=== PATIENT | female | born 1960 | race American Indian/Alaskan Native ===

== ENCOUNTER 2019-02-10 08:02 | Outpatient (CLI) | payer BC ==
--- NOTE | 2019-02-10 14:39 | Mammography Report ---
DIGITAL SCREENING MAMMOGRAM WITH CAD, 02/10/2019 INDICATION: Routine screening mammography. TECHNIQUE: Digital bilateral 2D mammography was obtained in the craniocaudal and mediolateral obliq ue projections. This examination was interpreted with the benefit of Computer-Aided Detection analysi s. COMPARISON: None available. However, she indicated that she had a previous mammogram at [facility]. FINDINGS: Breast Density: There are scattered areas of fibroglandular density. Right asymmetries on the MLO view require comparison with the prior mammogram or additional imaging. No architectural distortion or suspicious calcifications of the right breast. There is no evidence of dominant mass, suspicious calcifications or architectural distortion in the left breast. IMPRESSION:Comparison with a previous mammogram is recommended. We will attempt to obtain a prior jamel mogram for comparison. If we do not obtain a prior mammogram within 30 days, a revised report will be issued recommending a recall for additional imaging. Please be advised that the patient should not s chedule an appointment for return until adequate time (at least 2 weeks) has passed for us to obtain the prior mammogram. Follow up recommendation: Obtain prior study for comparison Category 0: Incomplete. Needs additional imaging evaluation and/or prior mammograms for comparison. A "normal" or negative report should not discourage follow up or biopsy of a clinically significant f inding. A written summary of these findings will be mailed to the patient. The patient will be entered into a mammography reporting system which will generate a reminder letter for the patient's next appointmen t at the appropriate interval. The [employer] recommends yearly mammograms starting at age 40 and continuing as l antony as a woman is in good health. Breast MRI is recommended for women with an approximate 20-25% or greater lifetime risk of breast cancer, including women with a strong family history of breast or ova caitlyn cancer or who have been treated for Hodgkin's disease. Signer Name: Tho Harris MD Signed: 02/10/2019 2:35 PM Workstation Name: [id number]
== END 2019-02-10 08:03 | disposition home or self-care (01) ==
LOC: MAMMO 08:02
PROVIDERS: ATTEND Family Medicine
DX: Z12.31 Encounter for screening mammogram for malignant neoplasm of breast (principal)
CPT/HCPCS: 77067

== ENCOUNTER 2020-02-23 08:25 | Outpatient (CLI) | payer BC ==
--- NOTE | 2020-02-23 13:13 | Mammography Report ---
DIGITAL SCREENING MAMMOGRAM WITH CAD, 02/23/2020 CLINICAL INFORMATION / INDICATION: Routine screening mammography. TECHNIQUE: Digital bilateral 2D mammography was obtained in the craniocaudal and mediolateral obliqu e projections. This examination was interpreted with the benefit of Computer-Aided Detection analysis . COMPARISON: 02/10/2019, 09/26/2014 FINDINGS: Breast Density: There are scattered areas of fibroglandular density. No dominant mass, suspicious calcifications, or architectural distortion in either breast. IMPRESSION: No mammographic evidence of malignancy. Follow up recommendation: Routine yearly BI-RADS Category 1: Negative. A "normal" or negative report should not discourage follow up or biopsy of a clinically significant f inding. A written summary of these findings will be mailed to the patient. The patient will be entered into a mammography reporting system which will generate a reminder letter for the patient's next appointmen t at the appropriate interval. The [employer] recommends yearly mammograms starting at age 40 and continuing as l antony as a woman is in good health. Breast MRI is recommended for women with an approximate 20-25% or greater lifetime risk of breast cancer, including women with a strong family history of breast or ova caitlyn cancer or who have been treated for Hodgkin's disease. Signer Name: Eze Puckett MD Signed: 02/23/2020 1:09 PM Workstation Name: [id number]
== END 2020-02-23 08:26 | disposition home or self-care (01) ==
LOC: MAMMO 08:25
PROVIDERS: ATTEND Family Medicine
DX: Z12.31 Encounter for screening mammogram for malignant neoplasm of breast (principal)
CPT/HCPCS: 77067

== ENCOUNTER 2020-07-17 13:28 | Emergency (ER) | payer BC ==
[2020-07-17 14:57] VITALS: BP 149/86
--- NOTE | 2020-07-17 15:03 | Event Note ---
ED Screening Note Date of service: 07/17/20 Time: 15:02 ED Screening Note: c/o right lower leg pain and swelling x 3 weeks, worsening hx of DM denies hx of gout or CHF +recent plane ride This initial assessment/diagnostic orders/clinical plan/treatment(s) is/are subject to change based on patients health status, clinical progression and re- assessment by fellow clinical providers in the ED. Further treatment and workup at subsequent clinical providers discretion. Patient/guardian urged not to elope from the ED as their condition may be serious if not clinically assessed and managed. Initial orders include: labs XR US
[2020-07-17 15:39] LABS: Basophils # (Auto) 0.1 K/mm3 (0.0-0.1); Basophils % (Auto) 0.8 % (0.0-1.8); Eosinophils # (Auto) 0.2 K/mm3 (0.0-0.4); Eosinophils % (Auto) 2.3 % (0.0-4.3); Lymphocytes # (Auto) 2.2 K/mm3 (1.2-5.4); Mean Corpuscular HGB Conc 34 % (30-34); Mean Corpuscular Volume 87 fl (79-97); Monocytes # (Auto) 0.4 K/mm3 (0.0-0.8); Monocytes % (Auto) 6.3 % (0.0-7.3); Platelet Count 275 K/mm3 (140-440); Red Blood Count 4.74 M/mm3 (3.65-5.03); Red Cell Distribution Width 14.2 % (13.2-15.2)
--- NOTE | 2020-07-17 15:58 | Vascular Lab Report ---
DUPLEX DOPPLER LOWER EXTREMITY VEINS, RIGHT INDICATION / CLINICAL INFORMATION: Right lower extremity pain and swelling. TECHNIQUE: Duplex doppler imaging was performed through the veins of the right lower extremity using venous comp ression and other maneuvers. COMPARISON: None available. FINDINGS: RIGHT COMMON FEMORAL VEIN: Negative. RIGHT FEMORAL VEIN: Negative. RIGHT POPLITEAL VEIN: Negative. RIGHT CALF VEINS: Negative. ADDITIONAL FINDINGS: None. IMPRESSION: 1. No sonographic evidence for DVT in the right lower extremity. Signer Name: Eze Puckett MD Signed: 07/17/2020 3:54 PM Workstation Name: [id number]
--- NOTE | 2020-07-17 16:11 | XRay Report ---
RIGHT ANKLE 3 VIEWS INDICATION / CLINICAL INFORMATION: Right ankle pain and swelling, no known injury. COMPARISON: None available. FINDINGS: BONES and JOINT(S): There is an acute nondisplaced transverse fracture through the distal third of th e fibular shaft. No dislocation. No significant arthritis. SOFT TISSUES: Moderate edema is seen along the ankle, most notably laterally. ADDITIONAL FINDINGS: None. IMPRESSION: Acute right fibular shaft fracture with moderate right ankle edema. Signer Name: Eze Puckett MD Signed: 07/17/2020 4:07 PM Workstation Name: [id number]
[2020-07-17 16:49] LABS: Alanine Aminotransferase 20 units/L (7-56); Albumin 4.5 g/dL (3.9-5); Blood Urea Nitrogen 12 mg/dL (7-17); Calcium 10.3 mg/dL (8.4-10.2); Hemolysis Index 5
[2020-07-17 16:50] LABS: BUN/Creatinine Ratio 24
--- NOTE | 2020-07-17 17:11 | Emergency Department Report ---
ED Extremity Problem HPI - General Chief complaint: Extremity Injury, Lower Stated complaint: RT ANKLE INJURY Time Seen by Provider: 07/17/20 15:00 Source: patient Mode of arrival: Ambulatory Limitations: No Limitations - History of Present Illness Initial comments: Patient is a 60-year-old female presents emergency room complaints of right ankle pain and swelling intermittently for the last 3 weeks. She states that the pain does radiate up her leg into her calf. She states she did just fly to [place] and got back today. He states that the swelling and pain has increased. She states last week she did have a fall onto her left side while in the parking lot when she accidentally slipped and fell. She states that she has been taking Tylenol with relief. She denies any shortness of breath, chest pain, numbness, weakness. Past medical history of HTN, DM, HLD, hyperthyroidism. Allergy to ibuprofen, neomycin, fish, latex. - Related Data Home Medications Medication Instructions Recorded Confirmed Last Taken Amlodipine Besylate [Norvasc] 5 mg PO DAILY 03/15/18 03/15/18 Unknown Insulin Glargine,Hum.rec.anlog 30 unit SQ BID 03/15/18 03/15/18 Unknown [Basaglar Kwikpen U-100] Levothyroxine [Synthroid] 100 mcg PO QAM 03/15/18 03/15/18 Unknown Lovastatin [Altoprev] 40 mg PO DAILY 03/15/18 03/15/18 Unknown lisinopriL [Lisinopril] 20 mg PO DAILY 03/15/18 03/15/18 Unknown Previous Rx's Medication Instructions Recorded Last Taken Type Acetaminophen [Tylenol] 650 mg PO Q8HR PRN #20 capsule 07/17/20 Unknown Rx traMADoL [Ultram 50 MG tab] 50 mg PO Q6HR PRN #10 tablet 07/17/20 Unknown Rx Allergies Allergy/AdvReac Type Severity Reaction Status Date / Time Fish Containing Products Allergy Angioedema Verified 03/15/18 01:32 ibuprofen Allergy Hives Verified 03/15/18 01:32 latex Allergy Hives Verified 03/15/18 01:33 ED Review of Systems ROS: Stated complaint: RT ANKLE INJURY Other details as noted in HPI Comment: All other systems reviewed and negative ED Past Medical Hx - Past Medical History Hx Hypertension: Yes Hx Congestive Heart Failure: No Hx Diabetes: Yes Hx Arthritis: Yes Hx Asthma: No Hx COPD: No Additional medical history: hemorrhoids - Surgical History Additional Surgical History: flash glucose monitoring JENNIFER - Social History Smoking Status: Former Smoker Substance Use Type: None - Medications Home Medications: Home Medications Medication Instructions Recorded Confirmed Last Taken Type Amlodipine Besylate [Norvasc] 5 mg PO DAILY 03/15/18 03/15/18 Unknown History Insulin Glargine,Hum.rec.anlog 30 unit SQ BID 03/15/18 03/15/18 Unknown History [Basaglar Kwikpen U-100] Levothyroxine [Synthroid] 100 mcg PO QAM 03/15/18 03/15/18 Unknown History Lovastatin [Altoprev] 40 mg PO DAILY 03/15/18 03/15/18 Unknown History lisinopriL [Lisinopril] 20 mg PO DAILY 03/15/18 03/15/18 Unknown History Acetaminophen [Tylenol] 650 mg PO Q8HR PRN #20 capsule 07/17/20 Unknown Rx traMADoL [Ultram 50 MG tab] 50 mg PO Q6HR PRN #10 tablet 07/17/20 Unknown Rx ED Physical Exam - General Limitations: No Limitations General appearance: alert, in no apparent distress - Head Head exam: Present: atraumatic, normocephalic - Eye Eye exam: Present: normal appearance - ENT ENT exam: Present: mucous membranes moist - Respiratory Respiratory exam: Present: normal lung sounds bilaterally. Absent: respiratory distress, wheezes, rales, rhonchi, stridor, chest wall tenderness, accessory muscle use, decreased breath sounds, prolonged expiratory - Cardiovascular Cardiovascular Exam: Present: regular rate, normal rhythm, normal heart sounds. Absent: systolic murmur - Extremities Exam Extremities exam: Present: other (moderate diffuse right ankle edema with ttp, no skin changes, no calf ttp, no swelling up the leg, FROM of the RLE with discomfort upon internal rotation, neurovasculalry intact with 2+ dp pulse) - Neurological Exam Neurological exam: Present: alert, oriented X3 - Psychiatric Psychiatric exam: Present: normal affect, normal mood - Skin Skin exam: Present: warm, dry, intact ED Course Vital Signs 07/17/20 14:56 Temperature 98.7 F Pulse Rate 95 H Respiratory 18 Rate Blood Pressure 149/86 [Right] O2 Sat by Pulse 98 Oximetry ED Medical Decision Making - Lab Data Result diagrams: 07/17/20 15:07 07/17/20 15:07 Lab Results 07/17/20 07/17/20 Range/Units 15:07 15:07 WBC 6.8 (4.5-11.0) K/mm3 RBC 4.74 (3.65-5.03) M/mm3 Hgb 14.0 (10.1-14.3) gm/dl Hct 41.0 (30.3-42.9) % MCV 87 (79-97) fl MCH 29 (28-32) pg MCHC 34 (30-34) % RDW 14.2 (13.2-15.2) % Plt Count 275 (140-440) K/mm3 Lymph % (Auto) 32.0 (13.4-35.0) % Elk % (Auto) 6.3 (0.0-7.3) % Eos % (Auto) 2.3 (0.0-4.3) % Baso % (Auto) 0.8 (0.0-1.8) % Lymph # (Auto) 2.2 (1.2-5.4) K/mm3 Elk # (Auto) 0.4 (0.0-0.8) K/mm3 Eos # (Auto) 0.2 (0.0-0.4) K/mm3 Baso # (Auto) 0.1 (0.0-0.1) K/mm3 Seg Neutrophils % 58.6 (40.0-70.0) % Seg Neutrophils # 4.0 (1.8-7.7) K/mm3 Sodium 140 (137-145) mmol/L Potassium 4.0 (3.6-5.0) mmol/L Chloride 103.5 (98-107) mmol/L Carbon Dioxide 30 (22-30) mmol/L Anion Gap 11 mmol/L BUN 12 (7-17) mg/dL Creatinine 0.5 L (0.6-1.2) mg/dL Estimated GFR > 60 ml/min BUN/Creatinine Ratio 24 % Glucose 181 H (65-100) mg/dL Calcium 10.3 H (8.4-10.2) mg/dL Total Bilirubin 0.40 (0.1-1.2) mg/dL AST 14 (5-40) units/L ALT 20 (7-56) units/L Alkaline Phosphatase 83 (35-129) units/L NT-Pro-B Natriuret Pep 28.81 (0-900) pg/mL Total Protein 7.5 (6.3-8.2) g/dL Albumin 4.5 (3.9-5) g/dL Albumin/Globulin Ratio 1.5 % - Radiology Data Radiology results: report reviewed Ordering Physician: BEHZAD GALLOWAY Date of Service: 07/17/20 Procedure(s): VL venous duplex LE RT Accession Number(s): [id number] cc: BEHZAD GALLOWAY DUPLEX DOPPLER LOWER EXTREMITY VEINS, RIGHT INDICATION / CLINICAL INFORMATION: Right lower extremity pain and swelling. TECHNIQUE: Duplex doppler imaging was performed through the veins of the right lower extremity using venous compression and other maneuvers. COMPARISON: None available. FINDINGS: RIGHT COMMON FEMORAL VEIN: Negative. RIGHT FEMORAL VEIN: Negative. RIGHT POPLITEAL VEIN: Negative. RIGHT CALF VEINS: Negative. ADDITIONAL FINDINGS: None. IMPRESSION: 1. No sonographic evidence for DVT in the right lower extremity. Signer Name: Eze Puckett MD Signed: 07/17/2020 3:54 PM Workstation Name: [id number] Transcribed By: DEMOND Dictated By: Eze Puckett MD Electronically Authenticated By: Eze Puckett MD Signed Date/Time: 07/17/20 1554 DD/ 1552 TD/TT: Ordering Physician: BEHZAD GALLOWAY Date of Service: 07/17/20 Procedure(s): XR ankle 3+V RT Accession Number(s): [id number] cc: BEHZAD GALOLWAY Fluoro Time In Minutes: RIGHT ANKLE 3 VIEWS INDICATION / CLINICAL INFORMATION: Right ankle pain and swelling, no known injury. COMPARISON: None available. FINDINGS: BONES and JOINT(S): There is an acute nondisplaced transverse fracture through the distal third of the fibular shaft. No dislocation. No significant arthritis. SOFT TISSUES: Moderate edema is seen along the ankle, most notably laterally. ADDITIONAL FINDINGS: None. IMPRESSION: Acute right fibular shaft fracture with moderate right ankle edema. Signer Name: Eze Puckett MD Signed: 07/17/2020 4:07 PM Workstation Name: [id number] Transcribed By: DEMOND Dictated By: Eze Puckett MD Electronically Authenticated By: Eze Puckett MD Signed Date/Time: 07/17/201606 DD/ 05 TD/TT: - Medical Decision Making Patient is a 60-year-old female presents emergency room complaints of right ankle pain and swelling intermittently for the last 3 weeks. She states that the pain does radiate up her leg into her calf. She states she did just fly to [place] and got back today. He states that the swelling and pain has increased. She states last week she did have a fall onto her left side while in the parking lot when she accidentally slipped and fell. She states that she has been taking Tylenol with relief. She denies any shortness of breath, chest pain, numbness, weakness. Past medical history of HTN, DM, HLD, hyperthyroidism. Allergy to ibuprofen, neomycin, fish, latex. Vitals are stable. On exam:moderate diffuse right ankle edema with ttp, no skin changes, no calf ttp, no swelling up the leg, FROM of the RLE with discomfort upon internal rotation, neurovasculalry intact with 2+ dp pulse. Orders placed and completed prior to my examination. Labs are stable. Ultrasound right lower extremity: 1. No sonographic evidence for DVT in the right lower extremity. X- ray right ankle: Acute right fibular shaft fracture with moderate right ankle edema. Discussed all results with patient answered questions. Discussed the importance of orthopedic follow-up. Patient placed in short leg posterior splint by tech and given crutches and remained neurovascularly intact. Patient given prescription for Tylenol and tramadol. Advised patient Please take medication as prescribed. Do not drive or operate machinery while taking severe pain medication. Please avoid bearing weight on the leg. Follow-up with orthopedic doctor. Return to emergency room for new or worsening symptoms. Critical care attestation.: If time is entered above; I have spent that time in minutes in the direct care of this critically ill patient, excluding procedure time. ED Disposition Clinical Impression: Right ankle swelling Right ankle pain Qualifiers: Chronicity: acute Qualified Code(s): M25.571 - Pain in right ankle and joints of right foot Right fibular fracture Qualifiers: Encounter type: initial encounter Fibula location: shaft Fracture type: closed Fracture morphology: unspecified fracture morphology Qualified Code(s): S82.401A - Unspecified fracture of shaft of right fibula, initial encounter for closed fracture Disposition: DC-01 TO HOME OR SELFCARE Is pt being admited?: No Does the pt Need Aspirin: No Condition: Stable Instructions: Tibial and Fibular Fractures Additional Instructions: Please take medication as prescribed. Do not drive or operate machinery while taking severe pain medication. Please avoid bearing weight on the leg. Follow- up with orthopedic doctor. Return to emergency room for new or worsening symptoms. Prescriptions: Acetaminophen [Tylenol] 650 mg PO Q8HR PRN #20 capsule PRN Reason: pain traMADoL [Ultram 50 MG tab] 50 mg PO Q6HR PRN #10 tablet PRN Reason: Pain , Severe (7-10) Referrals: ROLANDO CARBALLO MD [Primary Care Provider] - 3-5 Days GEORGE GRIGGS MD [Staff Physician] - 3-5 Days [facility] [Provider Group] - 3-5 Days Forms: Work/School Release Form(ED) Time of Disposition: 17:12 Print Language: CAMEROONIAN
== END 2020-07-17 18:28 | disposition home or self-care (01) ==
LOC: ED 13:28
DX: S82.401A Unspecified fracture of shaft of right fibula, initial encounter for closed fracture (principal); I10 Essential (primary) hypertension; E11.9 Type 2 diabetes mellitus without complications; M19.90 Unspecified osteoarthritis, unspecified site; Z79.899 Other long term (current) drug therapy; Z87.891 Personal history of nicotine dependence; Z91.013 Allergy to seafood; Z88.8 Allergy status to other drugs, medicaments and biological substances; X58.XXXA Exposure to other specified factors, initial encounter; Y93.89 Activity, other specified; Y92.89 Other specified places as the place of occurrence of the external cause; Y99.8 Other external cause status
CPT/HCPCS: 36415; 80053; 83880; 85025

== ENCOUNTER 2021-02-25 07:43 | Outpatient (CLI) | payer BC ==
--- NOTE | 2021-02-25 09:45 | Mammography Report ---
DIGITAL SCREENING MAMMOGRAM WITH CAD, 02/25/2021 CLINICAL INFORMATION / INDICATION: Routine screening mammography. TECHNIQUE: Digital bilateral 2D mammography was obtained in the craniocaudal and mediolateral obliqu e projections. This examination was interpreted with the benefit of Computer-Aided Detection analysis . COMPARISON: 02/23/2020, 02/10/2019 FINDINGS: Breast Density: There are scattered areas of fibroglandular density. No dominant mass, suspicious calcifications, or architectural distortion in either breast. IMPRESSION: No mammographic evidence of malignancy. Follow up recommendation: Routine yearly BI-RADS Category 1: Negative. A "normal" or negative report should not discourage follow up or biopsy of a clinically significant f inding. A written summary of these findings will be mailed to the patient. The patient will be entered into a mammography reporting system which will generate a reminder letter for the patient's next appointmen t at the appropriate interval. The [employer] recommends yearly mammograms starting at age 40 and continuing as l antony as a woman is in good health. Breast MRI is recommended for women with an approximate 20-25% or greater lifetime risk of breast cancer, including women with a strong family history of breast or ova caitlyn cancer or who have been treated for Hodgkin's disease. Signer Name: Eze Puckett MD Signed: 02/25/2021 9:41 AM Workstation Name: [id number]
== END 2021-02-25 07:44 | disposition home or self-care (01) ==
LOC: MAMMO 07:43
PROVIDERS: ATTEND Specialist
DX: Z12.31 Encounter for screening mammogram for malignant neoplasm of breast (principal)
CPT/HCPCS: 77067

== ENCOUNTER 2021-04-02 23:07 | Emergency (ER) | payer BC ==
[2021-04-03 02:00] LABS: Basophils # (Auto) 0.1 K/mm3 (0.0-0.1); Basophils % (Auto) 0.6 % (0.0-1.8); Eosinophils # (Auto) 0.3 K/mm3 (0.0-0.4); Eosinophils % (Auto) 3.3 % (0.0-4.3); Hematocrit 38.7 % (30.3-42.9); Hemoglobin 12.9 gm/dl (10.1-14.3); Lymphocytes # (Auto) 2.7 K/mm3 (1.2-5.4); Lymphocytes % (Auto) 32.3 % (13.4-35.0); Mean Corpuscular HGB Conc 33 % (30-34); Mean Corpuscular Volume 86 fl (79-97); Monocytes # (Auto) 0.6 K/mm3 (0.0-0.8); Monocytes % (Auto) 7.5 % (0.0-7.3); Platelet Count 279 K/mm3 (140-440); Red Blood Count 4.49 M/mm3 (3.65-5.03); Red Cell Distribution Width 14.1 % (13.2-15.2)
[2021-04-03 02:21] LABS: BUN/Creatinine Ratio 13; Blood Urea Nitrogen 14 mg/dL (7-17); Calcium 10.4 mg/dL (8.4-10.2); Hemolysis Index 1
[2021-04-03 05:38] LABS: Bilirubin,Urine NEG (Negative); Blood,Urine NEG (Negative); Calcium Oxalate Crystals,Urine 1+; Color,Urine Yellow (Yellow); HCG Qualitative,Urine Negative (Negative); Mucus,Urine FEW /HPF; Protein,Urine <15 mg/dL mg/dL (Negative); Urobilinogen,Urine < 2.0 mg/dL (<2.0)
[2021-04-03] MEDS ORDERED: cephALEXin 500 MG CAP PO ONE (06:00)
[2021-04-03] MEDS ORDERED: ONDANSETRON 4 MG/2 ML INJ IV ONE (06:00)
[2021-04-03] MEDS ORDERED: SODIUM CHLORIDE 0.9% 1000 ML 1,000 ML IV ONE (06:00)
[2021-04-03] MEDS ORDERED: ACETAMINOPHEN 500 MG TAB PO ONE (06:01)
--- NOTE | 2021-04-03 06:37 | Emergency Department Report ---
ED Abdominal Pain HPI - General Chief Complaint: Abdominal Pain Stated Complaint: GALLBLADDER PUI?: No Time Seen by Provider: 04/03/21 06:09 Source: patient Mode of arrival: Ambulatory Limitations: No Limitations - History of Present Illness Initial Comments: 61-year-old female with a past medical history of hyperlipidemia, diabetes, hypertension and fatty liver, presents to the ER today with complaints of epigastric/right upper quadrant abdominal pain. Patient states that she has been having this pain intermittently for about a couple weeks. She describes as a sharp/burning pain. She does not describe any worsening factors. She states that she does notice some relief when she lays on her left side. She denies any associated nausea, vomiting, diarrhea, constipation, chest pain, shortness of breath, melena or hematochezia. She reports no UTI symptoms. She denies any fever or chills. She is status post hysterectomy but no other abdominal surgeries. She states that she went to urgent care yesterday for symptoms and she was told that it could be related to her gallbladder and therefore sent here to the ER. MD Complaint: abdominal pain -: Gradual, week(s) (2) - Related Data Home Medications Medication Instructions Recorded Confirmed Last Taken Amlodipine Besylate [Norvasc] 5 mg PO DAILY 03/15/18 03/15/18 Unknown Insulin Glargine,Hum.rec.anlog 30 unit SQ BID 03/15/18 03/15/18 Unknown [Basaglar Kwikpen U-100] Levothyroxine [Synthroid] 100 mcg PO QAM 03/15/18 03/15/18 Unknown Lovastatin [Altoprev] 40 mg PO DAILY 03/15/18 03/15/18 Unknown lisinopriL [Lisinopril] 20 mg PO DAILY 03/15/18 03/15/18 Unknown Previous Rx's Medication Instructions Recorded Last Taken Type Acetaminophen [Tylenol] 650 mg PO Q8HR PRN #20 capsule 07/17/20 Unknown Rx Famotidine [Pepcid] 20 mg PO BID #60 tablet 04/03/21 Unknown Rx HYDROcodone/APAP 5-325 [Liberal 1 each PO Q4HR PRN #10 tablet 04/03/21 Unknown Rx 5/325] Pantoprazole [Protonix] 40 mg PO QDAY #30 tablet 04/03/21 Unknown Rx Allergies Allergy/AdvReac Type Severity Reaction Status Date / Time Fish Containing Products Allergy Angioedema Verified 03/15/18 01:32 ibuprofen Allergy Hives Verified 03/15/18 01:32 latex Allergy Hives Verified 03/15/18 01:33 ED Review of Systems ROS: Stated complaint: GALLBLADDER Other details as noted in HPI Comment: All other systems reviewed and negative Respiratory: denies: cough, shortness of breath, wheezing Cardiovascular: denies: chest pain, palpitations Gastrointestinal: abdominal pain. denies: diarrhea, constipation, hematemesis, melena Genitourinary: denies: urgency, dysuria, frequency, hematuria, discharge, abnormal menses, dyspareunia Musculoskeletal: denies: back pain, joint swelling, arthralgia Skin: denies: rash, lesions, change in color, change in hair/nails, pruritus Neurological: denies: headache, weakness, paresthesias Psychiatric: denies: anxiety, depression, auditory hallucinations, visual hallucinations, homicidal thoughts Hematological/Lymphatic: denies: easy bleeding, easy bruising, swollen glands ED Past Medical Hx - Past Medical History Previous Medical History?: No Hx Hypertension: Yes Hx Congestive Heart Failure: No Hx Diabetes: Yes Hx Arthritis: Yes Hx Asthma: No Hx COPD: No Additional medical history: hemorrhoids - Surgical History Past Surgical History?: No Additional Surgical History: flash glucose monitoring JENNIFER - Social History Smoking Status: Former Smoker Substance Use Type: None - Medications Home Medications: Home Medications Medication Instructions Recorded Confirmed Last Taken Type Amlodipine Besylate [Norvasc] 5 mg PO DAILY 03/15/18 03/15/18 Unknown History Insulin Glargine,Hum.rec.anlog 30 unit SQ BID 03/15/18 03/15/18 Unknown History [Basaglar Kwikpen U-100] Levothyroxine [Synthroid] 100 mcg PO QAM 03/15/18 03/15/18 Unknown History Lovastatin [Altoprev] 40 mg PO DAILY 03/15/18 03/15/18 Unknown History lisinopriL [Lisinopril] 20 mg PO DAILY 03/15/18 03/15/18 Unknown History Acetaminophen [Tylenol] 650 mg PO Q8HR PRN #20 capsule 07/17/20 Unknown Rx Famotidine [Pepcid] 20 mg PO BID #60 tablet 04/03/21 Unknown Rx HYDROcodone/APAP 5-325 [Liberal 1 each PO Q4HR PRN #10 tablet 04/03/21 Unknown Rx 5/325] Pantoprazole [Protonix] 40 mg PO QDAY #30 tablet 04/03/21 Unknown Rx ED Physical Exam - General Limitations: No Limitations General appearance: alert, in no apparent distress - Head Head exam: Present: atraumatic, normocephalic, normal inspection - Eye Eye exam: Present: normal appearance, PERRL, EOMI Pupils: Present: normal accommodation - Neck Neck exam: Present: normal inspection, full ROM - Respiratory Respiratory exam: Absent: respiratory distress - Cardiovascular Cardiovascular Exam: Present: regular rate - GI/Abdominal GI/Abdominal exam: Present: soft, tenderness (Epigastric and RUQ ). Absent: distended, guarding, rebound - Neurological Exam Neurological exam: Present: alert, oriented X3, CN II-XII intact, normal gait - Psychiatric Psychiatric exam: Present: normal affect, normal mood - Skin Skin exam: Present: intact ED Course Vital Signs 04/03/21 00:47 Temperature 99.0 F Pulse Rate 79 Respiratory 16 Rate Blood Pressure 167/82 [Left] O2 Sat by Pulse 99 Oximetry ED Medical Decision Making - Lab Data Result diagrams: 04/03/21 01:18 04/03/21 01:18 - EKG Data EKG shows normal: sinus rhythm Rate: normal (75) - EKG Data Interpretation: normal EKG - Radiology Data Radiology results: report reviewed Patient: GEORGIA CORDOVA MR#: [id number] : 1960 Acct:[id number] Age/Sex: 60 / F ADM Date: 04/02/21 Loc: ED Attending Dr: Ordering Physician: LIZANDRO BAEZA Date of Service: 04/03/21 Procedure(s): CT abdomen pelvis w con Accession Number(s): [id number] cc: LIZANDRO BAEZA CT ABDOMEN AND PELVIS WITH CONTRAST INDICATION / CLINICAL INFORMATION: Epigastric/right upper quadrant pain. TECHNIQUE: Axial CT images were obtained through the abdomen and pelvis after Omnipaque 300, 100 cc [address] All [address] scans at this location are performed using CT dose reduction for ALARA by means of automated exposure control. COMPARISON: None available. FINDINGS: LOWER CHEST: Mild coronary artery calcification. LIVER: Mild diffuse fatty infiltration. GALLBLADDER: No significant abnormality. BILE DUCTS: No significant abnormality. PANCREAS: No significant abnormality. SPLEEN: No significant abnormality. ADRENALS: No significant abnormality. RIGHT KIDNEY / URETER: No significant abnormality. LEFT KIDNEY / URETER: No significant abnormality. STOMACH / SMALL BOWEL: No significant abnormality. COLON: Noninflamed diverticulosis at the descending and sigmoid colon's. APPENDIX: No significant abnormality. PERITONEUM: No free fluid. No free air. No fluid collection. LYMPH NODES: No significant adenopathy. VASCULAR STRUCTURES: Mild atherosclerotic vascular calcification. URINARY BLADDER: No significant abnormality. REPRODUCTIVE ORGANS: Previous hysterectomy. ADDITIONAL FINDINGS: None. SKELETAL SYSTEM: No significant abnormality. IMPRESSION: 1. Negative for obstruction or localized inflammation. 2. Noninflamed colonic diverticulosis. Signer Name: Jesse Mae MD Signed: 04/03/2021 9:36 AM Workstation Name: [id number] Transcribed By: LEONA Dictated By: Jesse Mae MD Electronically Authenticated By: Jesse Mae MD Signed Date/Time: 04/03/21935 DD/ 9 TD/TT: - Medical Decision Making Labs reviewed --CBC and CMP unremarkable. Lipase normal. Urinalysis I suspect a more contamination versus a true UTI plus patient is not having any low abdominal pain, back pain or UTI symptoms. CT abdomen pelvis shows no acute abnormality. EKG shows normal sinus rhythm with a heart rate of 75, and no signs of STEMI, significant dysrhythmia or significant acute ischemic changes. Patient currently resting comfortably. She is not in any significant distress. She appears to be feeling better after meds. She is not toxic or ill- appearing. She is neurologically intact with a normal gait. Her vital signs are stable. She is hemodynamically stable. Discussed all results with patient. Her pain could be related to peptic ulcer disease versus gastritis. At this time a CT does not suggest any abnormalities to her gallbladder. She reports that she has had a colonoscopy before in the past but she never had an upper endoscopy and I do recommend follow-up with her GI specialist to get 1 done. She states that the next available appointment that they had for her was in April but she is on a waiting list. In the meantime she'll start on Pepcid and Protonix and given medication for pain. Patient understands that if at any point his symptoms changes or worsens in any way to return to the ER. Patient stable at time of discharge. - Differential Diagnosis Cholecystitis, pancreatitis, PUD/gastritis, bowel obstruction, cardiac etio Critical care attestation.: If time is entered above; I have spent that time in minutes in the direct care of this critically ill patient, excluding procedure time. ED Disposition Clinical Impression: Epigastric pain, Right upper quadrant abdominal pain Disposition: HOME / SELF CARE / HOMELESS Is pt being admited?: No Does the pt Need Aspirin: No Condition: Stable Instructions: Gastritis, Adult, [id number], Abdominal Pain, Adult, Peptic Ulcer, [id number], Abdominal Pain (ED) Additional Instructions: I recommend that you take the Pepcid and the Protonix as prescribed. Take the hydrocodone as prescribed for pain. I do recommend following up with GI specialist for endoscopy especially if your symptoms persist. Follow-up with your PCP as well. Return to the ER if your symptoms worsens in any way. Prescriptions: HYDROcodone/APAP 5-325 [Liberal 5/325] 1 each PO Q4HR PRN #10 tablet PRN Reason: Pain Famotidine [Pepcid] 20 mg PO BID #60 tablet Pantoprazole [Protonix] 40 mg PO QDAY #30 tablet Referrals: [facility] [Provider Group] - 3-5 Days Time of Disposition: 10:54
[2021-04-03] MEDS ORDERED: MORPHINE 2 MG/1 ML INJ IV ONE (06:46)
--- NOTE | 2021-04-03 09:41 | Cat Scan Report ---
CT ABDOMEN AND PELVIS WITH CONTRAST INDICATION / CLINICAL INFORMATION: Epigastric/right upper quadrant pain. TECHNIQUE: Axial CT images were obtained through the abdomen and pelvis after Omnipaque 300, 100 cc I V contrast. All CT scans at this location are performed using CT dose reduction for ALARA by means o f automated exposure control. COMPARISON: None available. FINDINGS: LOWER CHEST: Mild coronary artery calcification. LIVER: Mild diffuse fatty infiltration. GALLBLADDER: No significant abnormality. BILE DUCTS: No significant abnormality. PANCREAS: No significant abnormality. SPLEEN: No significant abnormality. ADRENALS: No significant abnormality. RIGHT KIDNEY / URETER: No significant abnormality. LEFT KIDNEY / URETER: No significant abnormality. STOMACH / SMALL BOWEL: No significant abnormality. COLON: Noninflamed diverticulosis at the descending and sigmoid colon's. APPENDIX: No significant abnormality. PERITONEUM: No free fluid. No free air. No fluid collection. LYMPH NODES: No significant adenopathy. VASCULAR STRUCTURES: Mild atherosclerotic vascular calcification. URINARY BLADDER: No significant abnormality. REPRODUCTIVE ORGANS: Previous hysterectomy. ADDITIONAL FINDINGS: None. SKELETAL SYSTEM: No significant abnormality. IMPRESSION: 1. Negative for obstruction or localized inflammation. 2. Noninflamed colonic diverticulosis. Signer Name: Jeses Mae MD Signed: 04/03/2021 9:36 AM Workstation Name: [id number]
[2021-04-03 10:21] LABS: Alanine Aminotransferase 13 units/L (7-56); Albumin 4.3 g/dL (3.9-5)
[2021-04-03 10:29] LABS: Bilirubin,Direct < 0.2 mg/dL (0-0.2)
[2021-04-03 11:14] VITALS: BP 161/86
--- NOTE | 2021-04-03 17:36 | Electrocardiograph Report ---
[facility] Test Date: 2021-04-03 Test Time: 06:53:41 Pat Name: GEORGIA CORDOVA Department: Room: Gender: F [employer]ic: IVÁN : 1960 Requested By: LIZANDRO BAEZA Order Number: [id number] Reading MD: Landon Petersen Measurements Intervals Iva Rate: 75 P: 10 OH: 147 QRS: -9 QRSD: 81 T: -9 QT: 403 QTc: 449 Interpretive Statements Sinus rhythm No previous ECG available for comparison Electronically Signed On 04-03-2021 17:35:39 EST by Landon Petersen
== END 2021-04-03 11:18 | disposition home or self-care (01) ==
LOC: ED 23:07
DX: R10.13 Epigastric pain (principal); R10.11 Right upper quadrant pain; I10 Essential (primary) hypertension; E11.9 Type 2 diabetes mellitus without complications; M19.90 Unspecified osteoarthritis, unspecified site; Z87.891 Personal history of nicotine dependence; Z88.6 Allergy status to analgesic agent; Z91.013 Allergy to seafood; Z91.040 Latex allergy status; Z88.8 Allergy status to other drugs, medicaments and biological substances; Z79.899 Other long term (current) drug therapy
CPT/HCPCS: 36415; 74177; 80048; 80076; 81001; 81025; 82150; 83690; 84484; 85025; 87086; 93005; 96361; 96374; 99284; J2405; J7030; Q9967; Q0162; J2270